=== PATIENT | male | born 1940 | race Caucasian/White ===

== ENCOUNTER 2017-11-10 13:13 | Inpatient (IN) | payer OTHER ==
[~2017-11-10] VITALS: Ht 170.2 cm; Wt 85.3 kg
[~2017-11-10 13:13] MED LIST: ACT15 PO; CALCITRIOL0.25 MCG PO; COUMADIN5 MG PO; COUMADIN7.5 MG; DILTIAZEM30 M1 PO; FERROUS SULFAT325 M2 PO; GLIPIZIDE10 MG; GLYBURIDE5 MG PO; HYDRALAZINE HCL25 MG; IMDUR30 MG PO; LASIX40 MG PO; LEV250 PO; LEVOTHYROXIN0.075 M2 PO; METOPROLOL TART25 M1 PO; MULTI-VITAMINS1 TAB PO; SIMVASTATIN10 M1 PO; TYLENOL EXTRA500 M2; VITAMIN B121000 MCG PO; VITAMIN D1 TA1 PO
[2017-11-10 16:05] LABS: BASOPHIL % 0.4 % (0-2); PLATELET COUNT 202 x10^3mcL (130-400); RED CELL DISTRIBUTION WIDTH 14.1 % (11.5-14.5)
[2017-11-10 16:08] LABS: UA SPECIFIC GRAVITY 1.015 (1.005-1.035); microscopic required? YES; urine erythrocyte NEGATIVE (NEGATIVE)
[2017-11-10 16:22] LABS: AMPHETAMINE QUAL UR NONE DETECTED (NEG <=1000)
[2017-11-10 16:26] LABS: ALKALINE PHOSPHATASE 45 U/L (46-116); ALT/SGPT 16 U/L (16-63); AMYLASE 93 U/L (25-115); AST/SGOT 8 U/L (15-37); BILIRUBIN TOTAL 0.78 mg/dL (0.20-1.00); CALCIUM 9.5 mg/dL (8.5-10.1); CARBON DIOXIDE 31.3 mmol/L (21-32); CHLORIDE SERUM 101 mmol/L (98-107); CHOLESTEROL 158 mg/dL (<200); GLUCOSE SERUM 139 mg/dL (74-106); HDL CHOLESTEROL 43 mg/dL (40-60); LIPASE 387 IU/L (73-393); POTASSIUM SERUM 4.8 mmol/L (3.5-5.1); SODIUM SERUM 140 mmol/L (136-145); T4(THYROXINE) 6.1 ug/dL (4.7-13.3); TOTAL PROTEIN, SERUM 7.4 g/dL (6.4-8.2)
[2017-11-10 16:27] LABS: ALBUMIN 3.1 g/dL (3.4-5.0)
[2017-11-10 16:28] LABS: CREATININE SERUM 6.2 mg/dL (0.7-1.3)
[2017-11-10] MEDS ORDERED: TIROSINT75 MC1 PO (16:36)
[2017-11-10] MEDS ORDERED: ISOSORBIDE MONO30 MG PO (16:36)
[2017-11-10] MEDS ORDERED: SIMVASTATIN10 M1 PO (16:36)
[2017-11-10] MEDS ORDERED: ASPIR 8181 MG PO (16:37)
[2017-11-10] MEDS ORDERED: REM15 PO (16:37)
[2017-11-10] MEDS ORDERED: LANTUS SOLOS100 U/M1 SQ (16:37)
[2017-11-10] MEDS ORDERED: COU1 PO (16:38)
[2017-11-10 17:21] VITALS: BP 158/61
[2017-11-10 17:30] VITALS: BP 149/78
[2017-11-10 21:10] VITALS: BP 100/46
[2017-11-11 05:13] VITALS: BP 129/53
[2017-11-11 07:24] LABS: BASOPHIL % 0.3 % (0-2); PLATELET COUNT 187 x10^3mcL (130-400); RED CELL DISTRIBUTION WIDTH 13.6 % (11.5-14.5)
[2017-11-11 07:34] LABS: CALCIUM 9.2 mg/dL (8.5-10.1); CARBON DIOXIDE 28.9 mmol/L (21-32); CHLORIDE SERUM 100 mmol/L (98-107); GLUCOSE SERUM 140 mg/dL (74-106); MAGNESIUM 2.2 mg/dL (1.8-2.4); PHOSPHOROUS 4.4 mg/dL (2.5-4.9); POTASSIUM SERUM 4.8 mmol/L (3.5-5.1); SODIUM SERUM 138 mmol/L (136-145)
[2017-11-11 08:39] LABS: CREATININE SERUM 6.6 mg/dL (0.7-1.3)
[2017-11-11 09:30] VITALS: BP 134/65
[2017-11-11 12:27] VITALS: BP 146/65
[2017-11-11 17:03] VITALS: BP 140/61
[2017-11-11 21:21] VITALS: BP 108/56
[2017-11-12 05:29] VITALS: BP 147/78
[2017-11-12 05:31] VITALS: BP 125/88
[2017-11-12 07:40] LABS: BASOPHIL % 1.7 % (0-2); PLATELET COUNT 213 x10^3mcL (130-400); RED CELL DISTRIBUTION WIDTH 12.8 % (11.5-14.5)
[2017-11-12 07:44] LABS: CALCIUM 8.9 mg/dL (8.5-10.1); CARBON DIOXIDE 32.1 mmol/L (21-32); CHLORIDE SERUM 97 mmol/L (98-107); GLUCOSE SERUM 162 mg/dL (74-106); PHOSPHOROUS 4.7 mg/dL (2.5-4.9); POTASSIUM SERUM 4.5 mmol/L (3.5-5.1); SODIUM SERUM 138 mmol/L (136-145)
[2017-11-12 07:47] LABS: CREATININE SERUM 4.9 mg/dL (0.7-1.3)
[2017-11-12 08:30] VITALS: BP 120/48
[2017-11-12 14:06] VITALS: BP 129/56
[2017-11-12 18:02] VITALS: BP 146/61
[2017-11-12 22:23] VITALS: BP 133/55
[2017-11-13 06:19] VITALS: BP 91/52
[2017-11-13 07:20] LABS: BASOPHIL % 1.5 % (0-2); PLATELET COUNT 235 x10^3mcL (130-400); RED CELL DISTRIBUTION WIDTH 12.9 % (11.5-14.5)
[2017-11-13 07:24] LABS: CALCIUM 9.2 mg/dL (8.5-10.1); CHLORIDE SERUM 94 mmol/L (98-107); GLUCOSE SERUM 123 mg/dL (74-106); MAGNESIUM 2.4 mg/dL (1.8-2.4); PHOSPHOROUS 5.2 mg/dL (2.5-4.9); POTASSIUM SERUM 4.8 mmol/L (3.5-5.1); SODIUM SERUM 136 mmol/L (136-145)
[2017-11-13 08:04] LABS: CREATININE SERUM 6.7 mg/dL (0.7-1.3)
[2017-11-13 08:40] VITALS: BP 144/58
[2017-11-13 14:15] VITALS: BP 90/44
[2017-11-13 14:50] VITALS: BP 100/48
[2017-11-13] MEDS ORDERED: NIC7 TD (15:49)
[2017-11-13] MEDS ORDERED: BG FS (15:52)
[2017-11-13] MEDS ORDERED: HUMULIN R100 U/1 M1 SC (15:55)
[2017-11-13] MEDS ORDERED: EASY TOUCH MC (15:56)
[2017-11-13] MEDS ORDERED: ACCU-CHEK1 EACH MC (15:57)
[2017-11-13 17:35] VITALS: BP 100/48
== END 2017-11-13 18:28 | disposition home or self-care (01) | DRG 291 ==
LOC: ED 13:13 → DU 16:10
PROVIDERS: Emergency Medicine; Family Medicine
DX: I13.2 Hypertensive heart and chronic kidney disease with heart failure and with stage 5 chronic kidney disease, or end stage renal disease (principal); N18.6 End stage renal disease; I50.43 Acute on chronic combined systolic (congestive) and diastolic (congestive) heart failure; J96.00 Acute respiratory failure, unspecified whether with hypoxia or hypercapnia; N17.0 Acute kidney failure with tubular necrosis; D68.69 Other thrombophilia; E44.0 Moderate protein-calorie malnutrition; E11.65 Type 2 diabetes mellitus with hyperglycemia; G47.00 Insomnia, unspecified; E03.9 Hypothyroidism, unspecified; Z66 Do not resuscitate; Z99.2 Dependence on renal dialysis; Z79.4 Long term (current) use of insulin; Z68.30 Body mass index [BMI] 30.0-30.9, adult; Z79.01 Long term (current) use of anticoagulants; F17.210 Nicotine dependence, cigarettes, uncomplicated; Z86.73 Personal history of transient ischemic attack (TIA), and cerebral infarction without residual deficits
CPT/HCPCS: 82962; 83880; J1815; J1940; J3490; J7030; J7620; Q0092